=== PATIENT | female | born 1970 | race Caucasian/White ===

== ENCOUNTER 2023-09-10 13:32 | Emergency (ER) | payer MEDICAID ==
[~2023-09-10] VITALS: Ht 162.6 cm; Wt 80.0 kg
[2023-09-10 13:39] VITALS: O2SAT 99
[2023-09-10] MEDS ORDERED: IBUPROFEN 600MG TABLET PO ONE (15:45)
[2023-09-10 17:15] LABS: BASOPHILS % 0.6 % (0.0-2.0); EOSINOPHILS % 3.8 % (0.0-5.0); HEMATOCRIT. 43.3 % (36.0-48.0); HEMOGLOBIN. 15.2 g/dL (12.0-16.0); LYMPHOCYTES % 35.8 % (20.0-50.0); MEAN CORPUSCULAR HEMOGLOBIN 31.6 pg (28.0-32.0); MEAN CORPUSCULAR HGB CONC 35.2 g/dL (31.0-37.0); MEAN CORPUSCULAR VOLUME 89.8 fL (81.0-99.0); MEAN PLATELET VOLUME 9.6 fl (7.4-10.4); MONOCYTES % 6.9 % (2.0-8.0); NEUTROPHILS % 52.9 % (40.0-76.0); PLATELET 162 x1000/uL (130-400); RED BLOOD CELL COUNT 4.82 mill/uL (4.2-5.4); RED CELL DISTRIBUTION WIDTH 13.4 % (11.6-14.6); WHITE BLOOD COUNT 9.3 x1000/uL (4.5-11.0)
[2023-09-10 17:31] LABS: CHLORIDE 108 mEq/L (98-107); POTASSIUM 3.9 mEq/L (3.5-5.1); SODIUM 139 mEq/L (136-145)
[2023-09-10 17:32] LABS: CARBON DIOXIDE 26 mEq/L (21-32)
[2023-09-10 17:37] LABS: CREATININE 0.7 mg/dL (0.6-1.0); GLUCOSE 84 mg/dL (70-105); UREA NITROGEN BLOOD 8 mg/dL (9-23)
[2023-09-10] MEDS: IBUPROFEN 600MG TABLET PO NR (17:41)
[2023-09-10] MEDS: ACETAMINOPHEN 325MG TABLET PO ONE (17:42)
[2023-09-10 17:47] LABS: TROPONIN I HIGH SENSITIVITY < 4 ng/L (3.0-34)
[2023-09-10] MEDS ORDERED: ACET-2708 MT (17:59)
[2023-09-10 18:47] VITALS: BP 130/65; PULSE 64; RESP 18; TEMP 98
== END 2023-09-10 18:48 | disposition home or self-care (01) ==
LOC: ER 13:32
DX: R51.9 Headache, unspecified (principal); M54.2 Cervicalgia; R07.89 Other chest pain
CPT/HCPCS: 36415; 71045; 80048; 82962; 83880; 84484; 85025; 93005; 99285